=== PATIENT | female | born 1995 | race Hispanic/Latino ===

== ENCOUNTER 2017-12-13 11:17 | Emergency (ER) | payer MEDICAID, SELFPAY ==
[2017-12-13 11:39] LABS: Bilirubin Negative (Negative); Blood, Urine Negative (Negative); Clarity CLEAR (Clear); Glucose, Urine (Dipstick) Negative (Negative); Leukocyte Trace (Negative); Nitrite Negative (Negative); Protein, Urine (Dipstick) Negative (Neg-Trace); Specific Gravity, Urine 1.022 (1.002-1.036); pH, Urine 7.5 (5.0-9.0)
[2017-12-13 11:42] LABS: Bacteria/HPF Rare-Few HPF (None Seen); Hyaline Casts/LPF 0-3 HYALINE CAST LPF (0-3 Hyaline); Pathc Cast-AUWi Flag 0.13 (0-2.49)
[2017-12-13 11:47] LABS: #Lymphocytes 1.6 thou/uL (1.20-3.40); #Monocytes 0.4 thou/uL (0.11-0.59); #Neutrophils 3.2 thou/uL (1.40-6.50); %Basophils 0.9 % (0.0-1.0); %Eosinophils 0.8 % (0.0-10.0); %Lymphocytes 29.7 % (21.0-51.0); %Monocytes 8.3 % (0.0-10.0); %Neutrophils 60.3 % (42.0-75.0); Hemoglobin 13.2 g/dL (12.0-16.0); Mean Corpuscular HGB CONC 34.4 g/dL (32.0-36.0); Mean Corpuscular Hemoglobin 33.2 pg (27.0-31.0); Mean Corpuscular Volume 96.4 fl (81.0-99.0); Mean Platelet Volume 7.6 fL (7.4-10.4); Platelet Count 271 thou/uL (130-400); RBC Distribution Width 11.1 % (11.5-14.5); Red Blood Cell (RBC) Count 3.97 mill/uL (4.20-5.40); White Blood Cell (WBC) Count 5.2 thou/uL (4.8-10.8)
[2017-12-13 12:13] LABS: ALT (SGPT) 13 U/L (8-55); AST (SGOT) 15 U/L (5-34); Albumin 4.4 g/dL (3.5-5.0); Alkaline Phosphatase 69 U/L (40-150); Anion Gap 16 mmol/L (10-20); BUN (Urea Nitrogen) 8 mg/dL (7.0-18.7); Bilirubin, Total 0.5 mg/dL (0.2-1.2); Calc. Creatinine Clearance 0 mL/min (70-130); Calcium 9.4 mg/dL (7.8-10.44); Carbon Dioxide 19 mmol/L (22-29); Chloride 107 mmol/L (98-107); Estimated GFR-MDRD Greater than 90; Globulin 3.1 g/dL (2.4-3.5); Glucose 94 mg/dL (70-105); Potassium 3.7 mmol/L (3.5-5.1); Protein, Total 7.5 g/dL (6.0-8.3); Sodium 138 mmol/L (136-145)
--- NOTE | 2017-12-13 13:11 | ULT ---
PELVIC ULTRASOUND: Date: 12/13/17 Transabdominal and endovaginal ultrasound of pelvis performed. HISTORY: Positive test. Pelvic cramping. FINDINGS: There is a gestational sac seen in the endometrial cavity. A pole is identified and a yolk sac is identified. [place]-rump length indicates a 5 week/6 day gestational age. heart rate could not be confirmed with color Doppler and spectral analysis. Both ovaries are identified. There is a right ovarian cyst measuring up to 2.0 cm. Color Doppler with spectral analysis demonstrates blood flow to both ovaries. IMPRESSION: There is an intrauterine gestation. Viability is not confirmed on this exam as heart tones were unable to be obtained. Recommend correlation with serial HCG levels and consider follow-up pelvic ul trasound. POS: RAUL
[2017-12-15 00:48] LABS: Chlamydia by PCR Not Detected (NotDetected); GC by PCR Not Detected (NotDetected)
== END 2017-12-13 13:20 | disposition home or self-care (01) ==
LOC: ERS 11:17
DX: O20.0 Threatened abortion (principal); Z3A.01 Less than 8 weeks gestation of pregnancy
CPT/HCPCS: 36415; 76856; 80053; 81003; 81015; 84702; 85025; 86900; 86901; 87480; 87491; 87510; 87591; 87660

== ENCOUNTER 2017-12-23 08:16 | Emergency (ER) | payer SELFPAY | END 2017-12-23 10:06 | disposition home or self-care (01) | LOC: ERS 08:16 | DX: O20.0 Threatened abortion (principal); Z3A.01 Less than 8 weeks gestation of pregnancy | CPT/HCPCS: 36415; 84702; 99284 ==

== ENCOUNTER 2018-02-21 12:44 | Emergency (ER) | payer SELFPAY | END 2018-02-21 14:59 | disposition home or self-care (01) | LOC: ERS 12:44 | DX: O99.512 Diseases of the respiratory system complicating pregnancy, second trimester (principal); J06.9 Acute upper respiratory infection, unspecified; Z3A.15 15 weeks gestation of pregnancy | CPT/HCPCS: 99283 ==

== ENCOUNTER 2018-08-11 21:00 | Inpatient (IN) | payer OTHER ==
[2018-08-12 00:14] VITALS: BMI 34.7
[2018-08-12] MEDS ORDERED: Promethazine HCl 25 MG/ML VIAL IM PRN (00:35)
[2018-08-12] MEDS ORDERED: Ondansetron HCl/PF 4 MG/2 ML Vial IVP PRN ×2 (00:35→14:49)
[2018-08-12] MEDS ORDERED: NS / Oxytocin 40 units/1000ml 1,000 ML IV PRN (00:35)
[2018-08-12] MEDS ORDERED: Lidocaine 1% (PF) 30 ML VIAL SC PRN (00:35)
--- NOTE | 2018-08-12 00:55 | PDOC.FPROB ---
FMR OB H&P: HPI - History of Present Illness Chief Complaint: induction of labor Indentification: History of Present Illness: 23yo at EGA 39.6 presents for elective induction of labor. Pt has no complaints or concerns at this time. Denies Vaginal bleeding/discharge/LOF, reports good movement. Primary Care Physician: Stephy Shetty MD FMR OB H&P: Current - Care : 3 Para: 2001 Gestational age: 39.6 Due date: 08/13/2018 Dating Criteria: LMP and 1st trimester US - OB Labs Blood type: AB RH: positive Antibody Screen: negative HIV: negative RPR: negative HepBsAg: negative Rubella: immune 1 hour gtt: 90 GBS: negative FMR OB H&P: History - Past Medical History PMH: none - Surgical History Sx History: none - Social History Social History: Denies tobacco/EtOH/drugs - Family History Family History: none FMR OB H&P: Medications - Current Home Medications: Medication Instructions Recorded Confirmed Type Vit No.126/Iron/Folic 08/12/18 History [Classic ] Allergies/Adverse Reactions: Allergies Allergy/AdvReac Type Severity Reaction Status Date / Time No Known Allergies Allergy Verified 08/12/18 00:16 FMR OB H&P: ROS - Review of Systems General: denies: fever/chills, fatigue Eyes: denies: eye pain, vision changes ENT: denies: nasal congestion, rhinorrhea, sore throat Cardiovascular: denies: chest pain, palpitation Respiratory: denies: cough, congestion, shortness of breath Gastrointestinal: reports: other (pressure). denies: abdominal pain, cramping Genitourinary (Female): denies: dysuria, hematuria Musculoskeletal: denies: stiffness, tenderness Neurologic: denies: syncope, seizures Integumentary: denies: rash, lesions Hematologic/Lymphatic: denies: prolonged or excessive bleeding FMR OB H&P: Vital Signs - Maternal Vital signs: Vital Signs - First Documented Temp Pulse Resp BP 98.7 F 80 16 132/82 08/12/18 00:13 08/12/18 00:13 08/12/18 00:13 08/12/18 00:13 - Heart Tones Variability: moderate Acceleration: present Deceleration: absent Category: category 1 Index contractions every: 9 FMR OB H&P: Physical Exam - Physical Exam General: NAD, awake, alert and oriented HEENT: normocephalic and atraumatic, EOMI, grossly normal hearing, normal nasal mucosa Neck: trachea midline Chest: non-tender to palpation Heart: RRR, normal S1/S2 General: CTAB, no respiratory distress, good air movement Abdomen: soft, gravid, bowel sound present Musculoskeletal: pulses present Neurological: no tremor, no focal deficit Skin: no rash, good tugor Lymphatic: no purpura, no petechia Psychiatric: intact recent and remote memory, good judgement and insight - Pelvic Exam SVE: 1//-3 Paredes score: 2 FMR OB H&P: A/P - Problem List (1) Elective induction of labor planned Current Visit: Yes Status: Acute Code(s): VGL4305 - (2) Current Visit: Yes Status: Acute Disposition: 23yo at EGA 39.6 presents for elective induction of labor. Pt doing well , genaro every 9 min with Paredes score 2. GBS -. complicated by anemia of . Last hgbs have 10-11. -Will start Cytotec Q4hr -type and screen -H&H -recheck in 4 hours -monitor contractions and vital signs Attending Addendum - Attending Addendum Date/Time: 08/12/18 8929 I personally evaluated the patient and discussed the management with Dr. Saini. I agree with and repeated the History, Examination, Assessment and Plan documented above with any addition or exceptions noted below. Elective induction. Unfavorable. Plan for cytotec PV.
[2018-08-12 02:18] LABS: Hemoglobin 10.1 g/dL (12.0-16.0); Mean Corpuscular HGB CONC 33.1 g/dL (32.0-36.0); Mean Corpuscular Hemoglobin 28.6 pg (27.0-31.0); Mean Corpuscular Volume 86.4 fL (78.0-98.0); Mean Platelet Volume 9.9 fL (7.4-10.4); Platelet Count 209 thou/uL (130-400); Red Blood Cell (RBC) Count 3.53 mill/uL (4.20-5.40)
[2018-08-12] MEDS ORDERED: Misoprostol 100 MCG TAB ONE (02:22)
[2018-08-12] MEDS: Lactated Ringer's 1,000 ML IV SCH ×2 (02:28→09:46)
[2018-08-12 02:55] LABS: HBSAg Index 0.21 S/CO (0-0.99); Hep B Surf Ag Non-Reactive S/CO (NonReactive)
[2018-08-12] MEDS ORDERED: Misoprostol 100 MCG TAB VAG SCH (05:00)
[2018-08-12 06:31] LABS: Syphilis Antibody Nonreactive (Nonreactive); Syphilis Antibody Index 0.03 S/CO (<1.00 Non-Reactive)
--- NOTE | 2018-08-12 06:36 | PDOC.LDPN ---
Labor & Delivery Progress Note - Subjective Subjective: comfortable - Objective Vital signs reviewed and normal: yes General: resting Uterine fundus: non tender SVE: 2-3/30/-3 FHT: category 1 [place] contractions every: 2-3 Resuscitative measures: maternal IV fluids - Assessment (1) Elective induction of labor planned Code(s): JZS1225 - Current Visit: Yes Status: Acute (2) Current Visit: Yes Status: Acute Plan: continue plan of care -: Pt resting comfortably with reassuring FHT. Cervix is making progress dilating however pt is genaro every 2-3 min -hold cytotec for 2 hours, recheck in 2 hours, otherwise continue current care. <Isaac Saini - Last Filed: 08/12/18 06:36> - Assessment (1) Elective induction of labor planned Code(s): NLU7200 - Current Visit: Yes Status: Acute (2) Current Visit: Yes Status: Acute <Cam Chaney - Last Filed: 08/12/18 06:44> Attending Addendum - Attending Addendum Date/Time: 08/12/18 0644 I personally evaluated the patient and discussed the management with Dr. Saini. I agree with the History, Examination, Assessment and Plan documented above with any addition or exceptions noted below. <Cam Chaney - Last Filed: 08/12/18 06:44>
--- NOTE | 2018-08-12 09:07 | PDOC.LDPN ---
Labor & Delivery Progress Note - Subjective Subjective: painful contractions - Objective Vital signs reviewed and normal: yes General: NAD Uterine fundus: non tender SVE: @ [address] Shetty Dilation: 5 Effacement: 50% Station: -2 FHT: category 1, variability present [place] contractions every: 2-3 minutes Procedures: AROM AROM: clear fluid - Assessment (1) Term Code(s): Z34.80 - ENCOUNTER FOR SUPRVSN OF NORMAL , UNSP TRIMESTER Current Visit: Yes Status: Acute Comment: 23 y/o @ 39.6 WGA here for elective IOL. AROM with clear fluid at 0900. SVE 5/50/-2 -No epidural desired, stadol prn pain -Will continue expectant management and if pt not making change, will add pitocin -Continuous monitoring Plan: continue plan of care
[2018-08-12] MEDS ORDERED: Butorphanol Tartrate 1 MG/ML VIAL SLOW IVP PRN (09:10)
[2018-08-12] MEDS ORDERED: Methylergonovine 0.2 MG/ML VIAL ONE (11:26)
[2018-08-12] MEDS ORDERED: Methylergonovine 0.2 MG/ML VIAL IM SCH (12:00)
--- NOTE | 2018-08-12 12:05 | PDOC.OPDEL ---
OB Operative/Delivery Note Delivery Dr/Surgeon: Dr. Shetty with attending Dr. Vazquez Assist: Dr. Wilhelm Pre-Delivery Diagnosis: elective induction Procedure/Post Delivery Dx: spontaneous vaginal delivery Weeks gestation: 39 (39w6d) Anesthesia: none - Findings A Sex: male - 1 min: 9 - 5 min: 9 - Additional Findings/Plan Placenta delivered: spontaneous Repaired Obstetrical Laceration: none Compilations/Other Findings: This is a 23 year old female @ 39.6 wks who delivered a viable M at 1119 on 08/12/18. Following an uneventful antepartum course, a vigorous male was delivered over an intact perineum in the occiput-anterior position. Anterior Shoulder and then remainder of the body delivered. No nuchal cord. The head was held down and mouth and nares were bulb suctioned. Cord clamped and cut and cord blood collected. Placenta delivered intact with a 3 vessel cord noted. Fundal massage was performed and the fundus was initially boggy, so 0.2mg methergine was administered and bimanual massage was performed until the uterus was found to be firm. The cervix and vagina were inspected and found to be free of lacerations. went to nursery in good condition for routine care. Apgars were 9&9 at 1 & 5 minutes, respectively. Patient tolerated delivery well and went to after routine recovery/care. QBL: 456mL Post delivery plan: routine recovery <Stephy Shetty - Last Filed: 08/12/18 12:03> Attending Addendum - Attending Addendum Date/Time: 08/12/18 1614 I was present for and assisted in the entire uncomplicated vaginal delivery of vigorous . I agree with the above documented findings. <Hilary Vazquez - Last Filed: 08/12/18 16:15>
[2018-08-12] MEDS ORDERED: Lanolin Ointment 7 GM TUBE TOP PRN (14:49)
[2018-08-12] MEDS ORDERED: Milk Of Magnesia 30 ML UDCUP PO PRN (14:49)
[2018-08-12] MEDS ORDERED: diphenhydrAMINE 25 MG CAP PO PRN (14:49)
[2018-08-12] MEDS ORDERED: NS / Oxytocin 40 units/1000ml 1,000 ML IV SCH (14:49)
[2018-08-12] MEDS ORDERED: Bisacodyl 10 MG SUPP PR PRN (14:49)
[2018-08-12] MEDS ORDERED: Adacel (T-DAP) 0.5 ML VIAL IM ONE (14:49)
[2018-08-12] MEDS: Ibuprofen 800 MG TAB PO SCH ×2 (15:28→23:17)
[2018-08-12] MEDS: Ferrous Sulfate 325 MG TAB PO SCH (18:31)
[2018-08-12] MEDS: Docusate Calcium (SURFAK) 240 MG CAP PO SCH (23:17)
[2018-08-13 05:53] LABS: Hemoglobin 9.6 g/dL (12.0-16.0); Mean Corpuscular HGB CONC 32.6 g/dL (32.0-36.0); Mean Corpuscular Hemoglobin 28.5 pg (27.0-31.0); Mean Corpuscular Volume 87.4 fL (78.0-98.0); Mean Platelet Volume 10.1 fL (7.4-10.4); Platelet Count 192 thou/uL (130-400); Red Blood Cell (RBC) Count 3.38 mill/uL (4.20-5.40)
[2018-08-13] MEDS: Ibuprofen 800 MG TAB PO SCH ×2 (06:48→14:01)
[2018-08-13 08:07] VITALS: BP 105/55; TEMP 97.5
--- NOTE | 2018-08-13 08:41 | PDOC.OBPPN ---
FMR OB PN: Subj - Interval History Hospital Day: 2 Day: 1 23 y/o ->3 who delivered at 39w6d via . Patient doing well. Reports that her abdominal pain has been very well controlled with motrin. She denies much vaginal bleeding. She has been ambulating without difficulty. Endorses flatus. Denies headaches, lightheadedness, dizziness, vision changes, SOB. She reports that her LE swelling has improved some. FMR OB PN: Obj - Maternal Vital signs: BP: 105/55 HR: 54 RR: 16 Tmax: 97.5 Wt: 88.9 kg - Urine output I&O: 08/12/18 08/13/18 08/14/18 06:59 06:59 06:59 Output Total 32 Balance -32 - Lochia Lochia: minimal FMR OB PN: Exam - Physical Exam General: NAD, awake, alert and oriented HEENT: EOMI, MMM Heart: RRR, normal S1/S2, no murmurs/rubs/gallops, pulses present, other (BLE non-pitting edema) General: CTAB, no respiratory distress, good air movement, no rales/rhonchi, no wheezing Abdomen: soft, fundus(cm) (1cm below umbilicus), non-tender, bowel sound present Musculoskeletal: pulses present, FROM in all four extremities Skin: good tugor, capillary refill <2 seconds Psychiatric: intact recent and remote memory, good judgement and insight, normal mood and affect FMR OB PN: Data - Labs Lab results: Laboratory Results - last 24 hr 08/13/18 05:32 WBC 11.0 H RBC 3.38 L Hgb 9.6 L Hct 29.5 L MCV 87.4 MCH 28.5 MCHC 32.6 RDW 14.0 Plt Count 192 MPV 10.1 FMR OB PN: A/P - Problem List (1) Term delivered Current Visit: Yes Status: Acute Code(s): O80 - ENCOUNTER FOR FULL-TERM UNCOMPLICATED DELIVERY Assessment and Plan: 23 y/o ->3 who delivered at 39w6d via . -Continue routine post- care -Ibuprofen for pain control -Encourage ambulation -Pt tolerating PO -Encouraged breast feeding, but pt elects to bottle feed. Counseled on the benefits of breast feeding -Pt desires to go home this PM if possible. d/c home this PM pending bili in (2) Anemia affecting Current Visit: Yes Status: Acute Code(s): O99.019 - ANEMIA COMPLICATING , UNSPECIFIED TRIMESTER Qualifiers: Trimester: unspecified trimester Qualified Code(s): O99.019 - Anemia complicating , unspecified trimester Assessment and Plan: Pt had anemia of and was on iron. Hb dropped from 10.1->9.6 , which was an appropriate drop -Continue ferrous sulfate -Docusate Disposition: d/c home this afternoon Discussion: Date/Time: 08/13/18 7411 This progress note was discussed with Dr. Hansen who agrees with the above documentation and plan. Attending Addendum - Attending Addendum Date/Time: 08/13/18 7546 I personally evaluated the patient and discussed the management with Dr. Shetty I agree with the History, Examination, Assessment and Plan documented above with any addition or exceptions noted below. 23 yo female s/p uncomplicated at 39.6 wks Doing well. No complications. 1. s/p : Routine care. Bottle feeding. Lochia appropriate. Fundus firm and nontender. VS stable. Pain controlled. Request early d/c. Will follow up this afternoon for possible early d/c. Hu
[2018-08-13] MEDS ORDERED: Prenatal Vitamin 1 TAB PO SCH (09:00)
[2018-08-13] MEDS: Docusate Calcium (SURFAK) 240 MG CAP PO SCH (09:59)
[2018-08-13] MEDS: Ferrous Sulfate 325 MG TAB PO SCH (10:00)
== END 2018-08-13 16:30 | disposition home or self-care (01) | DRG 775 ==
LOC: L&D 23:51 → EEVIPCON 23:51 → 3SW 08-12 15:15
PROVIDERS: ADMIT Emergency Medicine; ATTEND Emergency Medicine
PROC: 10907ZC Drainage of Amniotic Fluid, Therapeutic from Products of Conception, Via Natural or Artificial Opening (ICD-10-PCS; principal; 2018-08-12)
PROC: 10E0XZZ Delivery of Products of Conception, External Approach (ICD-10-PCS; 2018-08-12)
PROC: 3E033VJ Introduction of Other Hormone into Peripheral Vein, Percutaneous Approach (ICD-10-PCS; 2018-08-12)
DX: O99.02 Anemia complicating childbirth (principal); D64.9 Anemia, unspecified; Z3A.39 39 weeks gestation of pregnancy; Z37.0 Single live birth
CPT/HCPCS: 36415; 85027; 86780; 86850; 86900; 86901; 87340; J0595; J2001; J2210